=== PATIENT | female | born 1990 | race African-American/Black ===

== ENCOUNTER 2017-07-07 13:08 | Emergency (ER) | payer BC ==
[~2017-07-07] VITALS: Ht 162.6 cm; Wt 104.3 kg
[2017-07-07 13:30] VITALS: BP 139/79
--- NOTE | 2017-07-07 14:00 | RAD ---
Left elbow, 3 views, 07/07/2017: History: Fall, pain No fracture or dislocation is identified. There is no radiographic evidence of a joint effusion. There is mild subcutaneous edema posteriorly. IMPRESSION: No acute bony abnormality is detected.
[2017-07-07] MEDS ORDERED: NAPR500T8 PO (14:28)
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
== END 2017-07-07 14:38 | disposition home or self-care (01) ==
LOC: ER 13:08
DX: S50.02XA Contusion of left elbow, initial encounter (principal); F32.9 Major depressive disorder, single episode, unspecified; W03.XXXA Other fall on same level due to collision with another person, initial encounter; Y93.89 Activity, other specified; Y92.89 Other specified places as the place of occurrence of the external cause; Y99.8 Other external cause status
CPT/HCPCS: 73080; 99284

== ENCOUNTER → 2020-03-17 | Outpatient (CLI) | payer OTHER ==
[~2020-03-17] MED LIST: NAPR500T8 PO
[2020-03-17 10:15] LABS: HEMATOCRIT 41.4 % (36.0-47.0); HEMOGLOBIN 13.9 g/dL (12.0-15.5); RED BLOOD COUNT 4.81 x10^6/uL (3.50-5.40); RED CELL DISTRIBUTION WIDTH 13.9 % (11.5-14.5); WHITE BLOOD COUNT 3.4 x10^3/uL (4.0-11.0)
[2020-03-17 10:20] LABS: ALBUMIN 3.8 g/dL (3.4-5.0); ALBUMIN/GLOBULIN RATIO 1.1 (1.0-1.7); CALCIUM 8.4 mg/dL (8.5-10.1); CREATININE 0.9 mg/dL (0.6-1.0); GFR 89.6; POTASSIUM 3.4 mmol/L (3.5-5.1); TOTAL BILIRUBIN 0.2 mg/dL (0.2-1.0); TOTAL PROTEIN 7.4 g/dL (6.4-8.2)
[2020-03-17 10:21] LABS: CHOLESTEROL/HDL RATIO 5.1
== END | disposition home or self-care (01) ==
LOC: LAB 09:28
PROVIDERS: ATTEND Psychiatry & Neurology Psychiatry
DX: F25.1 Schizoaffective disorder, depressive type (principal); Z79.899 Other long term (current) drug therapy
CPT/HCPCS: 36415; 80053; 80061; 84443; 85027